=== PATIENT | female | born 1975 | race Two or more races ===

== ENCOUNTER 2021-12-24 06:40 | Day surgery (SDC) | payer OTHER ==
[2021-12-24] MEDS ORDERED: ULTRACET PO (10:54)
== END 2021-12-24 13:10 | disposition home or self-care (01) ==
LOC: CIR.AMB 06:40
PROVIDERS: ATTEND Surgery
DX: C20 Malignant neoplasm of rectum (principal); K62.5 Hemorrhage of anus and rectum; R59.0 Localized enlarged lymph nodes; Z87.891 Personal history of nicotine dependence; F12.90 Cannabis use, unspecified, uncomplicated; Z20.822 Contact with and (suspected) exposure to COVID-19

== ENCOUNTER 2023-04-21 12:43 | Inpatient (IN) | payer OTHER ==
[~2023-04-21] VITALS: Ht 152.4 cm; Wt 49.0 kg
[~2023-04-21 12:43] MED LIST: ULTRACET PO
[2023-05-03] MEDS ORDERED: LEVSIN/SL0.125 MG SL (08:10)
[2023-05-03] MEDS ORDERED: ACETAMINOPHEN500 M2 PO (08:10)
[2023-05-03] MEDS ORDERED: PRILOSEC OTC20 MG PO (08:10)
[2023-05-03] MEDS ORDERED: NEURONTIN300 MG PO (08:10)
== END 2023-05-03 11:26 | disposition home or self-care (01) | DRG 348 ==
LOC: SURG 04-28 07:00 → SURH 04-28 08:43 → O/R 04-28 08:43 → SURG 04-28 09:00 → SURH 04-28 16:53
PROVIDERS: Internal Medicine Geriatric Medicine; ADMIT Surgery; ATTEND Surgery
PROC: 0DBB4ZZ Excision of Ileum, Percutaneous Endoscopic Approach (ICD-10-PCS; principal; 2023-04-28 07:00)
DX: Z43.2 Encounter for attention to ileostomy (principal); C20 Malignant neoplasm of rectum; K62.5 Hemorrhage of anus and rectum; R59.0 Localized enlarged lymph nodes; K59.09 Other constipation; K29.60 Other gastritis without bleeding